=== PATIENT | female | born 1955 | race African-American/Black ===

== ENCOUNTER → 2018-07-21 | Outpatient (CLI) | payer MEDICARE ==
[~2018-07-21] MED LIST: DIATRIZOATE MEGL/DIATRIZOA SOD 30 ML BTL PO ONE; IOPAMIDOL 370 MG/ML 200 ML INFUS..BTL INJ ONE
[2018-07-21 13:33] LABS: BLOOD UREA NITROGEN 9 mg/dL (7-26); BUN/CREATININE RATIO 15 (6-25); EST GLOMERULAR FILTRATION RATE > 60 ML/MIN (60-)
--- NOTE | 2018-07-21 15:23 | Diagnostic Imaging Report ---
EXAM: CT Abdomen and Pelvis WITH contrast INDICATION: ^[id number] ^[id number] ^UNSPEC'D INTESTINAL OBSTRUCTION COMPARISON: None. TECHNIQUE: Abdomen and pelvis were scanned utilizing a multidetector helical scanner from the lung base to the pubic symphysis after administration of IV contrast. Coronal and sagittal reformations were obtained. Dose modulation, iterative reconstruction, and/or weight based adjustment of the mA/kV was utilized to reduce the radiation dose to as low as reasonably achievable. Routine protocol was performed. Scan was performed when during portal venous phase. IV CONTRAST: 100 mL of Isovue-370 ORAL CONTRAST: Gastroview COMPLICATIONS: None RADIATION DOSE: Total DLP: 379.9 mGy*cm Estimated effective dose: (DLP x 0.015 x size factor) mSv CTDIvol has been reviewed. It is below the limits set by the Radiation Protocol Committee (RPC). FINDINGS: LINES and TUBES: Left lower quadrant spine stimulator device with tip terminating in posterior spinal canal at the level of T11-T12. LOWER THORAX: Unremarkable HEPATOBILIARY: No focal hepatic lesions. Predominantly central pneumobilia. There is mild biliary dilatation. Distended common bile duct measuring up to 1.1 cm with air-fluid level. GALLBLADDER: Surgically absent. Metallic densities in the gallbladder fossa. SPLEEN: No splenomegaly. PANCREAS: No focal masses or ductal dilatation. ADRENALS: No adrenal nodules KIDNEYS/URETERS: Kidneys enhance symmetrically. No hydronephrosis. No renal mass. Tiny left inferior pole hypodensity is too small to characterize. No stones. GI TRACT: Evaluation of bowel loops are limited due to paucity of intra-abdominal fat. Mild colonic wall thickening. Evidence of gastric bypass surgery. Mild air and fluid distention of the bypassed portion of stomach and duodenum. Overall, the bowel gas pattern is nonobstructive. Oral contrast reaches proximal colon. PELVIC ORGANS/BLADDER: Hysterectomy. Bladder is unremarkable. Pelvic phleboliths. LYMPH NODES: No lymphadenopathy. VESSELS: Unremarkable. PERITONEUM / RETROPERITONEUM: No free air. Trace pelvic ascites. BONES: Lumbar spine scoliosis with degenerative changes. Grade 1 retrolisthesis of L5 in relation to L4. SOFT TISSUES: Metallic fragments in gallbladder fossa and anterior lower left abdomen (series 2, image 43). IMPRESSION: 1. Mild air and fluid distention of the bypassed portion of stomach and duodenum, likely due to stenosis at distal Y-anastomosis. The dilatation of common bile duct with air and fluid, could also be related to the same reason as well as some reservoir effect. 2. Colonic wall thickening, could represent colitis in the appropriate clinical setting. Signed by: Dr. Aaron Mg MD on 07/21/2018 3:20 PM
== END ==
LOC: CT 11:08
PROVIDERS: ATTEND Internal Medicine Gastroenterology
DX: K56.609 Unspecified intestinal obstruction, unspecified as to partial versus complete obstruction (principal)
CPT/HCPCS: 36415; 74177; 82565; 84520; Q9967

== ENCOUNTER → 2018-09-13 | Day surgery (SDC) | payer MEDICARE ==
[~2018-09-13] MED LIST changes: +AMITRIPTYLINE100 MG PO; -DIATRIZOATE MEGL/DIATRIZOA SOD 30 ML BTL PO ONE; +FENTANYL CITRATE/PF 100MCG/2 ML INJ ONE; +FERROUS SULFAT325 MG PO; +HYOSCYAMINE SULFATE 0.5 MG/ML INJ ONE; -IOPAMIDOL 370 MG/ML 200 ML INFUS..BTL INJ ONE; +MIDAZOLAM HCL 2 MG/2 ML VIAL ONE; +PANTOPRAZOLE SO40 MG PO; +PROPOFOL IV EMULSION 10 MG/ML 50 ML VIAL ONE; +TYLENOL WITH C1 EAC1 PO; +ULTRAM 50MG50 MG PO
--- OUTSIDE RECORDS SUMMARY | 2018-09-13 10:22 | XMS REPORT | Clinical Summary ---
Author Author [facility] Organization [facility] Address Unknown Phone Unavailable Care Team Providers [employer] Name Role Phone Jeremias Lombardi MD PCP Allergies Comments Active Allergy Reactions Severity Noted Date Penicillins Rash Low 04/09/2017 Medications End Date Status Medication Sig Dispensed Refills Start Date Active acetaminophen-codeine Take 1 tablet 0 (TYLENOL WITH CODEINE #4) by mouth 300-60 mg per tablet every 6 (six) hours as needed for moderate pain. Active amitriptyline (ELAVIL) Take 100 mg 0 100 MG tablet by mouth nightly. Active ferrous sulfate 325 (65 Take 325 mg 0 FE) MG tablet by mouth daily with breakfast. Active linaclotide (LINZESS) 145 Take 145 mcg 0 mcg capsule by mouth daily as needed. Active cyanocobalamin 1000 MCG Take 1,000 0 tablet mcg by mouth daily. Active cholecalciferol, vitamin Take 5,000 0 D3, (VITAMIN D3) 5,000 Units by unit tablet mouth daily. Active atorvastatin (LIPITOR) 80 Take 80 mg by 0 MG tablet mouth nightly. Active pantoprazole (PROTONIX) Take 40 mg by 0 40 MG EC tablet mouth daily. Active coenzyme Q10 10 mg Take 10 mg by 0 capsule mouth 2 (two) times a day. Active aspirin (ECOTRIN) 81 MG Take 81 mg by 0 enteric coated tablet mouth daily. Active promethazine (PHENERGAN) Take 1 tablet 30 tablet 1 12.5 MG (12.5 mg 8 tabletIndications: Nausea total) by and vomiting, mouth every 6 intractability of (six) hours vomiting not specified, as needed for unspecified vomiting type nausea or vomiting. Active furosemide (LASIX) 20 mg Take 20 mg by 0 tablet mouth daily. 01/20/2018 Discontinued diazePAM (VALIUM) 5 MG Take 5 mg by 0 tablet mouth 2 (two) times a day as needed for anxiety or muscle spasms. 04/26/2018 Discontinued metoprolol tartrate Take 25 mg by 0 (LOPRESSOR) 25 mg tablet mouth daily. 01/20/2018 Discontinued traMADol (ULTRAM) 50 mg Take 50 mg by 0 tablet mouth every 6 (six) hours as needed for moderate pain. 01/20/2018 Discontinued promethazine (PHENERGAN) Take 25 mg by 0 25 MG tablet mouth every 6 (six) hours as needed for nausea or vomiting. 01/20/2018 Discontinued keTOROlac (TORadol) 10 mg Take 10 mg by 0 tablet mouth every 6 (six) hours as needed for moderate pain. 04/26/2018 Discontinued amLODIPine (NORVASC) 10 Take 10 mg by 0 mg tablet mouth daily. 04/27/2018 Discontinued promethazine (PHENERGAN) Take 12.5 mg 0 12.5 MG tablet by mouth every 6 (six) hours as needed for nausea or vomiting. 02/22/2018 acetaminophen (TYLENOL) Take 2 240 tablet 0 500 MG tablet tablets 8 (1,000 mg total) by mouth every 6 (six) hours for 30 days. 01/27/2018 nitrofurantoin, Take 1 8 capsule 0 macrocrystal-monohydrate, capsule (100 8 (MACROBID) 100 MG capsule mg total) by mouth every 12 (twelve) hours for 4 days. 01/30/2018 traMADol (ULTRAM) 50 mg Take 1 tablet 35 tablet 0 tablet (50 mg total) 8 by mouth every 6 (six) hours as needed for moderate pain for up to 7 days. 01/30/2018 promethazine (PHENERGAN) Take 1 tablet 30 tablet 0 12.5 MG tablet (12.5 mg 8 total) by mouth every 6 (six) hours as needed for nausea or vomiting for up to 7 days. 04/26/2018 Discontinued baclofen (LIORESAL) 10 MG baclofen 10 0 tablet mg tablet 03/31/2018 promethazine (PHENERGAN) Take 1 tablet 30 tablet 0 25 MG tabletIndications: (25 mg total) 8 Nausea by mouth every 6 (six) hours as needed for nausea or vomiting for up to 30 days. 05/31/2018 Discontinued TPN FOR DISCHARGE See most 1 Package 0 recent TPN 8 order. 05/31/2018 Discontinued B complex-vitamin C-folic Take 1 tablet 30 tablet 0 acid (FOLBEE PLUS 5 MG) 5 by mouth 8 mg tablet per tablet daily for 30 days. 05/31/2018 Discontinued megestrol (MEGACE) 400 Take 10 mL 300 mL 0 mg/10 mL (10 mL) (400 mg 8 suspension total) by mouth daily for 30 days. 05/31/2018 Discontinued metoclopramide (REGLAN) 5 Take 5 mL (5 600 mL 0 mg/5 mL solution mg total) by 8 mouth 4 (four) times a day before meals and nightly for 30 days. 05/31/2018 Discontinued multivitamin (THERAGRAN) Take 1 tablet 30 tablet 0 tablet by mouth 8 daily for 30 days. 05/31/2018 Discontinued pancrelipase, Take 1 90 capsule 0 vcdnxq-knbppbtw-mmblusd, capsule by 8 (CREON) 24,000-76,000 mouth 3 -120,000 unit (three) times capsule,delayed a day with release(DR/EC) capsule meals for 30 days. 05/31/2018 Discontinued thiamine mononitrate, vit Take 1 tablet 30 tablet 0 B1, (B-1) 100 mg tablet (100 mg 8 total) by mouth daily for 30 days. 06/30/2018 multivitamin (THERAGRAN) Take 1 tablet 30 tablet 0 tablet by mouth 8 daily for 30 days. 06/30/2018 pancrelipase, Take 1 90 capsule 0 yxodak-chbnvcut-gncdlwo, capsule by 8 (CREON) 24,000-76,000 mouth 3 -120,000 unit (three) times capsule,delayed a day with release(DR/EC) capsule meals for 30 days. 06/12/2018 vancomycin 1,000 mg in Infuse 1,000 1 each 0 sodium chloride 0.9% 250 mg into a 8 mL IVPB venous catheter every 12 (twelve) hours for 12 days. 06/30/2018 B complex-vitamin C-folic Take 1 tablet 30 tablet 0 acid (FOLBEE PLUS 5 MG) 5 by mouth 8 mg tablet per tablet daily for 30 days. Active Problems Problem Noted Date Fever 05/26/2018 Anemia 05/25/2018 Malnutrition 04/21/2018 Severe protein-calorie malnutrition 04/20/2018 Overview: Added automatically from request for surgery [id number] Small bowel obstruction 01/20/2018 Chest pain 06/20/2017 Encounters Care Team Description Date Type Specialty Isa Nieto MD 06/01/2018 Telephone Infectious Diseases Lyn Moser MD Bacteremia (Primary Dx); Anemia 05/25/2018 Hospital General Internal Medicine - Encounter 05/31/2018 Janet Quiñonez MA 05/25/2018 Telephone General Surgery Janet Quiñonez MA 05/23/2018 Telephone General Surgery Silvestre Arriaga MD 05/23/2018 Orders Only General Surgery Silvestre Arriaga MD 05/16/2018 Orders Only General Surgery Lias Roberts MD Edema, unspecified type 05/12/2018 Hospital Procedural Cardiology Encounter Lisa Roberts MD Edema, unspecified type (Primary Dx) 05/12/2018 Transcribe Procedural Cardiology Orders Parish Martinez MD 05/03/2018 Telephone General Surgery Carina Sheldon RN Nausea and vomiting, intractability of vomiting not specified, unspecified vomiting type (Primary Dx) 04/27/2018 Orders Only General Surgery Jalen Gatica MD ESOPHAGOGASTRODUODENOSCOPY (EGD) 04/25/2018 Surgery Gastroenterology Dhother, Jayesh Chowdhury MD 04/25/2018 Anesthesia Gastroenterology Event Zohreh Langford MD Severe protein-calorie malnutrition (HCC) (Primary Dx); Malnutrition compromising bodily function (HCC) 04/21/2018 Hospital General Surgery - Encounter 04/26/2018 Zohreh Langford MD 04/20/2018 Orders Only General Internal Medicine Parish Martinez MD Generalized abdominal pain (Primary Dx) 04/19/2018 Office Visit General Surgery Lisa Roberts MD Deferred diagnosis on axis I (Primary Dx) 03/27/2018 Transcribe Access Orders Parish Martinez MD S/P small bowel resection (Primary Dx) 03/15/2018 Office Visit General Surgery Parish Martinez MD Nausea (Primary Dx); Wound infection 03/01/2018 Office Visit General Surgery Parish Martinez MD Small bowel obstruction (Primary Dx) 02/13/2018 Office Visit General Surgery Parish Martinez MD Complete intestinal obstruction, unspecified cause (Primary Dx) 02/06/2018 Office Visit General Surgery Priyanka Sorensen PA 02/02/2018 Telephone General Surgery Ivy White MD 01/20/2018 Anesthesia General Surgery Event Parish Martinez MD DIAGNOSTIC LAPAROSCOPY CONVERTED TO OPEN, SMALL BOWEL RESECTION 01/20/2018 Surgery General Surgery Brendan Clark, Rod Macedo, Abhishek Mosher MD Small bowel obstruction (Primary Dx) 01/20/2018 Hospital General Surgery - Encounter 01/23/2018 after 09/12/2017 Immunizations Name Dates Previously Given Next Due FLUCELVAX QUAD PF (0.5mL 04/26/2018 syringe) Social History Date Tobacco Use Types Packs/Day Years Used Never Smoker Smokeless Tobacco: Never Used Alcohol Use Drinks/Week oz/Week Comments No Sex Assigned at Date Recorded Not on file Industry Job Start Date Occupation Not on file Not on file Not on file Travel End Travel History Travel Start No recent travel history available. Last Filed Vital Signs Time Taken Vital Sign Reading 05/31/2018 7:15 AM [employer]UC[employer] SAL[employer] Blood Pressure 112/58 05/31/2018 7:15 AM [employer]UC[employer] E[employer]MENT SALES ENG[employer]ER Pulse 88 05/31/2018 7:15 AM [employer]UC[employer] EQU[employer]MENT SALES ENG[employer]ER Temperature 37.4 C (99.3 F) 05/31/2018 7:15 AM [employer]UC[employer] EQU[employer]MENT SALES ENG[employer]ER Respiratory Rate 19 05/31/2018 7:15 AM [employer]UCLE[employer] EQU[employer]MENT SALES ENGINEER Oxygen Saturation 100% - Inhaled Oxygen - Concentration 05/30/2018 4:00 PM [employer]UC[employer] EQUIPMENT SALES ENG[employer]ER Weight 59.5 kg (131 lb 1.6 oz) 05/25/2018 2:38 PM [employer]UC[employer] SALES [employer] Height 162.6 cm (5' 4") 05/30/2018 4:00 PM [employer]UCLE[employer] EQU[employer]MENT SALES ENG[employer]ER Body Mass Index 22.5 Plan of Treatment Health Maintenance Due Date Last Done Comments CERVICAL CANCER SCREENING 1976 BREAST CANCER SCREENING 2005 SHINGLES VACCINES (#1) 2005 COLON CANCER SCREENING 04/23/2028 04/23/2018 INFLUENZA VACCINE Completed 04/26/2018 Implants Device Identifier Shelf Expiration Date Model / Serial / Lot Implanted Type Area Manufactur er Stimulator Stimulator Stimulator Stimulator Stimulator Stimulator Procedures Comments Procedure Name Priority Date/Time Associated Diagnosis XR PICC CHEST PORTABLE Routine 05/31/2018 Anemia 11:22 AM [employer]UC[employer] SAL[employer]ER HC CATH DUAL LUMEN PICC Routine 05/31/2018 11:04 AM [employer] SAL[employer]ER HC US GUIDED VASCULAR Routine 05/31/2018 ACCESS 11:04 AM [employer]UC[employer] SAL[employer] ENG[employer]ER HC CVL PICC INSERT 5 YRS Routine 05/31/2018 OR > W/O IMG GUID 11:04 AM [employer] SAL[employer]ER BLOOD CULTURE, AEROBIC & Routine 05/30/2018 ANAEROBIC 2:59 PM [employer] SAL[employer] ENG[employer]ER ESTIMATED GFR Routine 05/30/2018 6:17 AM [employer] SAL[employer] ENG[employer]ER PHOSPHORUS LEVEL Routine 05/30/2018 6:17 AM [employer] SAL[employer] ENG[employer]ER MAGNESIUM LEVEL Routine 05/30/2018 6:17 AM [employer] SAL[employer]ER COMPREHENSIVE METABOLIC Routine 05/30/2018 PANEL 6:17 AM [employer]UC[employer] SAL[employer] ENG[employer]ER ESTIMATED GFR Routine 05/29/2018 4:00 AM NUC[employer] E[employer]MENT SALES ENGINEER PHOSPHORUS LEVEL Routine 05/29/2018 4:00 AM [employer]UC[employer]MENT SALES ENG[employer]ER MAGNESIUM LEVEL Routine 05/29/2018 4:00 AM [employer] SAL[employer] BASIC METABOLIC PANEL Routine 05/29/2018 4:00 AM [employer] SALES ENG[employer]ER VANCOMYCIN LEVEL, TROUGH Routine 2018 8:30 AM NUC[employer] E[employer]MENT SALES ENGINEER ESTIMATED GFR Routine 2018 4:00 AM NUC[employer]MENT SALES ENGINEER PHOSPHORUS LEVEL Routine 2018 4:00 AM NUC[employer]MENT SALES ENGINEER MAGNESIUM LEVEL Routine 2018 4:00 AM [employer]UC[employer] SAL[employer] ENGINEER BASIC METABOLIC PANEL Routine 2018 4:00 AM [employer]UC[employer] SAL[employer] ENG[employer]ER BLOOD CULTURE, AEROBIC & Routine 05/27/2018 ANAEROBIC 3:40 PM [employer]UC[employer]MENT SAL[employer] ENGINEER HEPATIC FUNCTION PANEL Routine 05/27/2018 3:30 PM NUC[employer] E[employer]MENT SALES ENG[employer]ER HC COMPLETE BLD COUNT Routine 05/27/2018 W/AUTO DIFF 4:15 AM NUCLE[employer] EQUIPMENT SALES ENGINEER ESTIMATED GFR Routine 05/27/2018 4:00 AM NUC[employer] EQU[employer]MENT SALES ENGINEER PHOSPHORUS LEVEL Routine 05/27/2018 4:00 AM NUC[employer] EQU[employer]MENT SALES ENGINEER MAGNESIUM LEVEL Routine 05/27/2018 4:00 AM [employer] SAL[employer] ENG[employer]ER BASIC METABOLIC PANEL Routine 05/27/2018 4:00 AM NUC[employer] EQUIPMENT SALES ENGINEER ECHOCARDIOGRAM 2D Routine 05/27/2018 COMPLETE W MMODE SPECTRAL 2:35 AM NUCLE[employer] EQUIPMENT SALES ENGINEER COLOR DOPPLER ([id number]) TRANSFUSE RED BLOOD CELLS Routine 05/26/2018 4:07 PM NUCLE[employer] EQUIPMENT SALES ENGINEER RESPIRATORY PATHOGEN Routine 05/26/2018 PANEL 10:48 AM NUCLE[employer] EQUIPMENT SALES ENGINEER XR CHEST 1 VW PORTABLE Routine 05/26/2018 7:54 AM NUC[employer] EQUIPMENT SALES ENGINEER HC COMPLETE BLD COUNT Routine 05/26/2018 W/AUTO DIFF 5:24 AM NUCLE[employer] EQUIPMENT SALES ENGINEER POC GLUCOSE Routine 05/25/2018 10:12 PM NUC[employer]MENT SALES ENG[employer]ER URINALYSIS SCREEN AND Routine 05/25/2018 MICROSCOPY, WITH REFLEX 5:42 PM NUC[employer] E[employer]IPMENT SALES ENGINEER TO CULTURE URINE CULTURE Routine 05/25/2018 5:40 PM NUCLE[employer] EQUIPMENT SALES ENGINEER BLOOD CULTURE, AEROBIC & Routine 05/25/2018 ANAEROBIC 5:38 PM NUC[employer]IPMENT SALES ENGINEER BLOOD CULTURE, AEROBIC & Routine 05/25/2018 ANAEROBIC 5:35 PM NUC[employer] E[employer]IPMENT SALES ENGINEER PREPARE RBC Timed 05/25/2018 4:00 PM NUC[employer] E[employer]MENT SALES ENGINEER PREPARE RBC Timed 05/25/2018 4:00 PM NUC[employer] E[employer]MENT SALES ENGINEER TYPE AND SCREEN Timed 05/25/2018 4:00 PM NUC[employer]MENT SALES ENG[employer]ER HC COMPLETE BLD COUNT STAT 05/25/2018 W/AUTO DIFF 4:00 PM NUC[employer]MENT SALES ENGINEER ESTIMATED GFR Routine 05/25/2018 2:53 PM NUC[employer] E[employer]MENT SALES ENGINEER BASIC METABOLIC PANEL Routine 05/25/2018 2:53 PM NUC[employer] E[employer]MENT SALES ENGINEER [id number] Routine 05/23/2018 [id number] Routine 05/16/2018 US DUPLEX VENOUS LOWER Routine 05/12/2018 Edema, unspecified type EXTREMITY BILATERAL 2:03 PM CDT POC GLUCOSE Routine 04/26/2018 9:04 AM CDT POC GLUCOSE Routine 04/26/2018 3:29 AM CDT POC GLUCOSE Routine 04/25/2018 11:28 PM CDT POC GLUCOSE Routine 04/25/2018 7:59 PM CDT POC GLUCOSE Routine 04/25/2018 4:56 PM CDT POC GLUCOSE Routine 04/25/2018 11:38 AM CDT ESOPHAGOGASTRODUODENOSCOP 04/25/2018 Severe protein-calorie Y (EGD) 7:00 AM CDT malnutrition (HCC) CBC WITH PLATELET AND Routine 04/25/2018 DIFFERENTIAL 5:30 AM CDT POC GLUCOSE Routine 04/25/2018 4:36 AM CDT ESTIMATED GFR Routine 04/25/2018 4:00 AM CDT PHOSPHORUS LEVEL Routine 04/25/2018 4:00 AM CDT MAGNESIUM LEVEL Routine 04/25/2018 4:00 AM CDT C-REACTIVE PROTEIN Routine 04/25/2018 4:00 AM CDT BASIC METABOLIC PANEL Routine 04/25/2018 4:00 AM CDT POC GLUCOSE Routine 04/24/2018 11:38 PM CDT POC GLUCOSE Routine 04/24/2018 8:57 PM CDT POC GLUCOSE Routine 04/24/2018 3:26 PM CDT PHOSPHORUS LEVEL Routine 04/24/2018 11:44 AM CDT ESTIMATED GFR Routine 04/24/2018 11:44 AM CDT MAGNESIUM LEVEL Routine 04/24/2018 11:44 AM CDT BASIC METABOLIC PANEL Routine 04/24/2018 11:44 AM CDT POC GLUCOSE Routine 04/24/2018 11:38 AM CDT POC GLUCOSE Routine 04/24/2018 7:28 AM CDT POC GLUCOSE Routine 04/24/2018 3:38 AM CDT POC GLUCOSE Routine 04/23/2018 11:18 PM CDT POC GLUCOSE Routine 04/23/2018 3:28 PM CDT TYPE AND SCREEN Timed 04/23/2018 11:55 AM CDT HEMOGLOBIN & HEMATOCRIT Timed 04/23/2018 11:55 AM CDT POC GLUCOSE Routine 04/23/2018 11:25 AM CDT OCCULT BLOOD, STOOL Routine 04/23/2018 9:30 AM CDT POC GLUCOSE Routine 04/23/2018 7:13 AM CDT HC COMPLETE BLD COUNT Routine 04/23/2018 W/AUTO DIFF 4:30 AM CDT ESTIMATED GFR Routine 04/23/2018 4:00 AM CDT PHOSPHORUS LEVEL Routine 04/23/2018 4:00 AM CDT MAGNESIUM LEVEL Routine 04/23/2018 4:00 AM CDT BASIC METABOLIC PANEL Routine 04/23/2018 4:00 AM CDT POC GLUCOSE Routine 04/23/2018 3:34 AM CDT POC GLUCOSE Routine 04/22/2018 11:01 PM CDT ESTIMATED GFR Timed 04/22/2018 8:00 PM CDT PHOSPHORUS LEVEL Timed 04/22/2018 8:00 PM CDT MAGNESIUM LEVEL Timed 04/22/2018 8:00 PM CDT BASIC METABOLIC PANEL Timed 04/22/2018 8:00 PM CDT POC GLUCOSE Routine 04/22/2018 3:19 PM CDT PHOSPHORUS LEVEL Timed 04/22/2018 11:48 AM CDT MAGNESIUM LEVEL Timed 04/22/2018 11:48 AM CDT ESTIMATED GFR Timed 04/22/2018 11:48 AM CDT BASIC METABOLIC PANEL Timed 04/22/2018 11:48 AM CDT POC GLUCOSE Routine 04/22/2018 11:05 AM CDT POC GLUCOSE Routine 04/22/2018 7:06 AM CDT SEDIMENTATION RATE Routine 04/22/2018 4:40 AM CDT ESTIMATED GFR Routine 04/22/2018 4:00 AM CDT TRIGLYCERIDES Routine 04/22/2018 4:00 AM CDT PREALBUMIN LEVEL Routine 04/22/2018 4:00 AM CDT FERRITIN LEVEL Routine 04/22/2018 4:00 AM CDT BASIC METABOLIC PANEL Routine 04/22/2018 4:00 AM CDT PHOSPHORUS LEVEL Routine 04/22/2018 4:00 AM CDT MAGNESIUM LEVEL Routine 04/22/2018 4:00 AM CDT VITAMIN D 25 HYDROXY Routine 04/22/2018 LEVEL 4:00 AM CDT C-REACTIVE PROTEIN Routine 04/22/2018 4:00 AM CDT HOMOCYSTINE, PLASMA Routine 04/22/2018 4:00 AM CDT THYROID STIMULATING Routine 04/22/2018 HORMONE 4:00 AM CDT VITAMIN B1 LEVEL, WHOLE Routine 04/22/2018 BLOOD 4:00 AM CDT VITAMIN B12 LEVEL Routine 04/22/2018 4:00 AM CDT POC GLUCOSE Routine 04/22/2018 3:[address] ABDOMEN PELVIS W Routine 04/21/2018 CONTRAST 6:52 PM CDT XR PICC CHEST PORTABLE Routine 04/21/2018 Malnutrition compromising 5:45 PM CDT bodily function (HCC) HC CATH DUAL LUMEN PICC Routine 04/21/2018 5:31 PM CDT HC US GUIDED VASCULAR Routine 04/21/2018 ACCESS 5:31 PM CDT HC CVL PICC INSERT 5 YRS Routine 04/21/2018 OR > W/O IMG GUID 5:31 PM CDT XR CHEST 2 VW Routine 04/21/2018 5:01 PM CDT ECG 12-LEAD STAT 04/21/2018 3:43 PM CDT PROTHROMBIN TIME WITH INR STAT 04/21/2018 3:22 PM CDT D-DIMER STAT 04/21/2018 3:22 PM CDT TROPONIN STAT 04/21/2018 2:25 PM CDT SMEAR REVIEW STAT 04/21/2018 2:25 PM CDT ESTIMATED GFR STAT 04/21/2018 2:25 PM CDT PREALBUMIN LEVEL STAT 04/21/2018 2:25 PM CDT PHOSPHORUS LEVEL STAT 04/21/2018 2:25 PM CDT MAGNESIUM LEVEL STAT 04/21/2018 2:25 PM CDT LIPASE LEVEL STAT 04/21/2018 2:25 PM CDT COMPREHENSIVE METABOLIC STAT 04/21/2018 PANEL 2:25 PM CDT HC COMPLETE BLD COUNT STAT 04/21/2018 W/AUTO DIFF 2:25 PM CDT AMYLASE LEVEL STAT 04/21/2018 2:25 PM CDT HC COMPLETE BLD COUNT Routine 01/23/2018 W/AUTO DIFF 4:10 AM CDT ZZESTIMATED GFR Routine 01/23/2018 4:00 AM CDT PHOSPHORUS LEVEL Routine 01/23/2018 4:00 AM CDT MAGNESIUM LEVEL Routine 01/23/2018 4:00 AM CDT BASIC METABOLIC PANEL Routine 01/23/2018 4:00 AM CDT HC COMPLETE BLD COUNT Routine 01/22/2018 W/AUTO DIFF 4:15 AM CDT ZZESTIMATED GFR Routine 01/22/2018 4:00 AM CDT PHOSPHORUS LEVEL Routine 01/22/2018 4:00 AM CDT MAGNESIUM LEVEL Routine 01/22/2018 4:00 AM CDT BASIC METABOLIC PANEL Routine 01/22/2018 4:00 AM CDT CBC WITH PLATELET AND Routine 01/21/2018 DIFFERENTIAL 4:40 AM CDT ZZESTIMATED GFR Routine 01/21/2018 4:00 AM CDT PHOSPHORUS LEVEL Routine 01/21/2018 4:00 AM CDT MAGNESIUM LEVEL Routine 01/21/2018 4:00 AM CDT BASIC METABOLIC PANEL Routine 01/21/2018 4:00 AM CDT SMEAR REVIEW Routine 01/20/2018 1:48 PM CDT HC COMPLETE BLD COUNT Routine 01/20/2018 W/AUTO DIFF 1:48 PM CDT SURGICAL PATHOLOGY Routine 01/20/2018 REQUEST 1:02 PM CDT CBC WITH PLATELET AND Routine 01/20/2018 DIFFERENTIAL 1:00 PM CDT ZZESTIMATED GFR Routine 01/20/2018 12:15 PM CDT BASIC METABOLIC PANEL Routine 01/20/2018 12:15 PM CDT RI AN ELECTIVE Routine 01/20/2018 ENDOTRACHEAL AIRWAY 10:27 AM CDT Procedure Note - Evelyn Farnsworth CRNA - 01/20/2018 10:27 AM CDT Airway Date/Time: 01/20/2018 9:50 AM Performed by: EVELYN FARNSWORTH Authorized by: IVY WHITE Location: OR Urgency: Elective Difficult Airway: No Resident/C RNA/AA: EVELYN FARNSWORTH Performed by: resident/C RNA/AA Preoxygena karen with 100% O2: Yes C-spine Precaution s Maintained Throughout : Yes Mask Ventilatio n: Not attempted Final Airway Type: Endotrache al airway Final Endotrache al Airway: ETT Cuffed: Yes Technique Used: Direct laryngosco py Insertion Site: Oral Blade Type: Pedroza Laryngosco pe Blade/Vide olaryngosc ope Blade Size: 2 ETT Size (mm): 7.0 Cuff at minimum occlusion pressure: Yes Measured from: Gums ETT to Gums (cm): 21 Placement Verified by: CO2 detection, direct visualizat ion and equal breath sounds Laryngosco pic view: Grade I - full view of glottis Rapid Sequence Induction (RSI): Yes Number of Attempts at Approach: 1 ECG 12-LEAD STAT 01/20/2018 9:31 AM CDT LAPAROSCOPY, DIAGNOSTIC 01/20/2018 DIAGNOSTIC LAPAROSCOPY 8:[address] ABDOMEN PELVIS W STAT 01/20/2018 CONTRAST 6:00 AM CDT URINALYSIS SCREEN AND STAT 01/20/2018 MICROSCOPY, WITH REFLEX 5:00 AM CDT TO CULTURE GRAM STAIN STAT 01/20/2018 5:00 AM CDT URINE CULTURE STAT 01/20/2018 5:00 AM CDT ZZESTIMATED GFR STAT 01/20/2018 2:50 AM CDT LACTIC ACID LEVEL, SEPSIS STAT 01/20/2018 - NOW AND REPEAT 2X EVERY 2:50 AM CDT 3 HOURS LIPASE LEVEL STAT 01/20/2018 2:50 AM CDT COMPREHENSIVE METABOLIC STAT 01/20/2018 PANEL 2:50 AM CDT HC COMPLETE BLD COUNT STAT 01/20/2018 W/AUTO DIFF 2:50 AM CDT after 09/12/2017 Results * XR Picc Chest Portable (05/31/2018 11:22 AM NUCLE[employer] EQUIPMENT SALES ENGINEER) Only the most recent of 2 results within the time period is included. Narrative Performed At EXAMINATION:XR PICC CHEST PORTABLE [facility] CLINICAL HISTORY:PICC LINE INSERTION XR PICC CHEST PORTABLEimages are submitted COMPARISON:05/26/2018 FINDINGS: The cardiac silhouette is normal in size. The pulmonary vasculature is within normal limits. The lung zones have no focal area of consolidation. There is no pleural effusion or pneumothorax. The PICC line has the tip in the superior vena cava. IMPRESSION: 1. There is no acute cardiopulmonary disease. Procedure Note Hm Interface, Radiology Results Incoming - 05/31/2018 11:26 AM NUCLEAR EQUIPMENT SALES ENGINEER EXAMINATION: XR PICC CHEST PORTABLE CLINICAL HISTORY: PICC LINE INSERTION XR PICC CHEST PORTABLE images are submitted COMPARISON: 05/26/2018 FINDINGS: The cardiac silhouette is normal in size. The pulmonary vasculature is within normal limits. The lung zones have no focal area of consolidation. There is no pleural effusion or pneumothorax. The PICC line has the tip in the superior vena cava. IMPRESSION: 1. There is no acute cardiopulmonary disease. Performing Organization Address City/State/Zipcode Phone Number [id number] [phone] [place] [address] * PICC insertion (05/31/2018 11:04 AM NUCLEAR EQUIPMENT SALES ENGINEER) Narrative Performed At Brendan See RN 05/31/2018 11:07 AM PICC insertion Date/Time: 05/31/2018 11:05 AM Performed by: Brendan See RN Authorized by: Lyn Moser MD Consent: Consent obtained:Verbal Consent given by:Patient Risks discussed: arterial puncture, incorrect placement, nerve damage, bleeding, infection, superficial thrombus and deep vein thrombus Alternatives discussed:Delayed treatment [place] protocol: Procedure explained and questions answered to patient or proxy's satisfaction: yes Relevant documents present and verified: yes Test results available and properly labeled: yes Imaging studies available: yes Required blood products, implants, devices, and special equipment available: yes Site/side marked: yes Immediately prior to procedure, a time out was called: yes Patient identity confirmed:Verbally with patient, arm band, provided demographic data and hospital-assigned identification number Pre-procedure details: Hand hygiene: Hand hygiene performed prior to insertion Sterile barrier technique: All elements of maximal sterile technique followed Skin preparation:ChloraPrep Skin preparation agent: Skin preparation agent completely dried prior to procedure Anesthesia (see MAR for exact dosages): Anesthesia method:Local infiltration Local anesthetic:Lidocaine 1% w/o epi Route of administration:Subcutaneous PICC Line Placement Details (Will create an LDA): Patient position:Flat Vessel Size (mm):3 Indication:Known long-term IV therapy Location:Right brachial Device Type:Non-valved Catheter size:5 Fr PICC Characteristics: Catheter Brand:AngiodySynacorflo External Catheter Length (cm):0 Internal Catheter Length (cm):38 Total Catheter Length (cm):38 Catheter Lot Number:[id number] Catheter Expiration Date:03/17/2020 Procedure Details: Landmarks identified: yes Ultrasound guidance: yes Sterile ultrasound techniques: Sterile gel and sterile probe covers were used Number of attempts:1 Number of PICC kits used during procedure:1 Purpose of procedure:PICC Placement Successful PICC Placement: Yes Patency/Placement:Flushes without difficulty, flushed with 10 mL normal saline, positive blood return, x-ray placement verified and injection cap placed PICC placed utlizing ultrasound-guided Modified Seldinger Technique: Yes Dressing/Securement:Catheter securement device and antimicrobial dressing applied (CHG Tegaderm) Blood Loss Amount:Less than 20 mL Post-Procedure Details: Post-procedure:Dressing applied Tip placement confirmed by chest x-ray: Yes Patient tolerance of procedure:Tolerated well, no immediate complications * Blood culture, aerobic & anaerobic (05/30/2018 2:59 PM NUCLE[employer] EQUIPMENT SALES ENGINEER) Only the most recent of 4 results within the time period is included. Blood culture isolate No growth after 5 days of [facility] incubation. [facility] Comment: Specimen Information Specimen Source: Blood Specimen Site: Forearm, left Specimen Blood - Forearm, left Performing Organization Address City/[facility] [place] Phone Number [facility] [place] [address] PATHOLOGY AND [facility] MEDICINE [address] * Estimated GFR (05/30/2018 6:17 AM NUCLEAR EQUIPMENT SALES ENGINEER) Only the most recent of 12 results within the time period is included. Estimated GFR >=90 mL/min/1.73 m2 [facility] Comment: HOSPITAL CatergoryUnitsInte rpretation G1 >=90 Normal or high G2 60-89Mildly decreased F1s49-63 Mildly to moderately decreased A6x22-18 Moderately to severely decreased G4 15-29Severely decreased G5 <15Kidney failure The eGFR was calculated using the Chronic Kidney Disease Epidemiology Collaboration (CKD-EPI) equation. Interpretation is based on recommendations of the National Kidney Foundation-Kidney Disease Outcomes Quality Initiative (NKF-KDOQI) published in 2014. Specimen Plasma specimen Performing Organization Address City/[facility] Phone Number [facility] [address] PATHOLOGY AND GENOMIC MEDICINE [address] * Phosphorus level (05/30/2018 6:17 AM NUCLEAR EQUIPMENT SALES ENGINEER) Only the most recent of 14 results within the time period is included. Phosphorus 2.7 2.4 - 4.5 mg/dL [facility] Specimen Plasma specimen Performing Organization Address City/[facility]/Zipcode Phone Number [facility] DEPARTMENT OF [address] [place] [address] PATHOLOGY AND GENOMIC MEDICINE [address] * Magnesium level (05/30/2018 6:17 AM NUCLEAR EQUIPMENT SALES ENGINEER) Only the most recent of 14 results within the time period is included. Magnesium 1.6 1.6 - 2.4 mg/dL [facility] Specimen Plasma specimen Performing Organization Address City/[facility]ode Phone Number [facility] DEPARTMENT OF [address] [place] [address] PATHOLOGY AND GENOMIC MEDICINE [address] * Comprehensive metabolic panel (05/30/2018 6:17 AM NUCLEAR EQUIPMENT SALES ENGINEER) Only the most recent of 3 results within the time period is included. Sodium 141 135 - 148 mEq/L [facility] Potassium 3.8 3.5 - 5.0 mEq/L [facility] Chloride 110 98 - 112 mEq/L [facility] CO2 20 (L) 24 - 31 mEq/L [facility] Anion gap 11@ANIO 7 - 15 mEq/L [facility] BUN 14 8 - 23 mg/dL [facility] Creatinine 0.64 0.50 - 0.90 mg/dL [facility] Glucose 107 (H) 65 - 99 mg/dL [facility] Calcium 8.8 8.8 - 10.2 mg/dL [facility] Protein 6.3 6.3 - 8.3 g/dL [facility] Comment: HOSPITAL 4.6-7.0 g/dL 1 week 4.4-7.6 g/dL 7 months-1year 5.1-7.3 g/dL 1-2 years5.6-7 .5 g/dL >3 years6.0-8 .0 g/dL 18-150 6.3-8.3 g/dL Albumin 2.1 (L) 3.5 - 5.0 g/dL [facility] A/G ratio 0.5 (L) 0.7 - 3.8 [facility] Alkaline phosphatase 53 35 - 104 U/L [facility] AST 53 (H) 10 - 35 U/L [facility] ALT 29 5 - 50 U/L [facility] Total bilirubin <0.2 0.0 - 1.2 mg/dL [facility] Specimen Plasma specimen Performing Organization Address City/[facility] Phone Number [facility] [place] [address] PATHOLOGY AND GENOMIC MEDICINE [address] * Basic metabolic panel (05/29/2018 4:00 AM NUCLEAR EQUIPMENT SALES ENGINEER) Only the most recent of 14 results within the time period is included. Sodium 140 135 - 148 mEq/L [facility] Potassium 3.6 3.5 - 5.0 mEq/L [facility] Chloride 110 98 - 112 mEq/L [facility] CO2 19 (L) 24 - 31 mEq/L [facility] Anion gap 11@ANIO 7 - 15 mEq/L [facility] BUN 19 8 - 23 mg/dL [facility] Creatinine 0.66 0.50 - 0.90 mg/dL [facility] Glucose 85 65 - 99 mg/dL [facility] Calcium 8.8 8.8 - 10.2 mg/dL [facility] Specimen Plasma specimen Performing Organization Address [facility] Phone Number [facility] [address] PATHOLOGY AND GENOMIC MEDICINE [address] * Vancomycin level, trough (2018 8:30 AM NUCLEAR EQUIPMENT SALES ENGINEER) Vancomycin, trough 17.6 10.0 - 20.0 ug/mL [facility] Comment: HOSPITAL Therapeutic Ranges: Peak 30.0 - 40.0 ug/mL Jgmujh96.0 - 20.0 ug/mL Specimen Serum Performing Organization Address City/[facility] Centercode Phone Number [facility] [place] [address] PATHOLOGY AND GENOMIC MEDICINE [address] * Hepatic function panel (05/27/2018 3:30 PM NUCLEAR EQUIPMENT SALES ENGINEER) Albumin 2.1 (L) 3.5 - 5.0 g/dL [facility] DEPARTMENT OF PATHOLOGY AND GENOMIC MEDICINE Total bilirubin <0.2 0.0 - 1.2 mg/dL [facility] DEPARTMENT OF PATHOLOGY AND GENOMIC MEDICINE Bilirubin direct <0.2 0.0 - 0.3 mg/dL [facility] DEPARTMENT OF PATHOLOGY AND GENOMIC MEDICINE Alkaline phosphatase 54 35 - 104 U/L [facility] DEPARTMENT OF PATHOLOGY AND GENOMIC MEDICINE Protein 6.4 6.3 - 8.3 g/dL [facility] DEPARTMENT OF Comment: PATHOLOGY AND GENOMIC MEDICINE 4.6-7.0 g/dL 1 week 4.4-7.6 g/dL 7 months-1year 5.1-7.3 g/dL 1-2 years5.6-7 .5 g/dL >3 years6.0-8 .0 g/dL 18-150 6.3-8.3 g/dL ALT 22 5 - 50 U/L [facility] DEPARTMENT OF PATHOLOGY AND GENOMIC MEDICINE AST 43 (H) 10 - 35 U/L [facility] DEPARTMENT OF PATHOLOGY AND GENOMIC MEDICINE Specimen Plasma specimen Performing Organization Address City/State/Zipcode Phone Number [facility] DEPARTMENT OF [address] [place] [address] PATHOLOGY AND GENOMIC MEDICINE * CBC with platelet and differential (05/27/2018 4:15 AM NUCLEAR EQUIPMENT SALES ENGINEER) Only the most recent of 12 results within the time period is included. WBC 8.29 4.50 - 11.00 k/uL [facility] DEPARTMENT OF PATHOLOGY AND GENOMIC MEDICINE RBC 3.63 (L) 4.20 - 5.50 m/uL [facility] DEPARTMENT OF PATHOLOGY AND GENOMIC MEDICINE HGB 8.7 (L) 12.0 - 16.0 g/dL [facility] DEPARTMENT OF PATHOLOGY AND GENOMIC MEDICINE HCT 26.4 (L) 37.0 - 47.0 % [facility] DEPARTMENT OF PATHOLOGY AND GENOMIC MEDICINE MCV 72.7 (L) 82.0 - 100.0 fL [facility] DEPARTMENT OF PATHOLOGY AND GENOMIC MEDICINE MCH 24.0 (L) 27.0 - 34.0 pg [facility] DEPARTMENT OF PATHOLOGY AND GENOMIC MEDICINE MCHC 33.0 31.0 - 37.0 g/dL [facility] DEPARTMENT OF PATHOLOGY AND GENOMIC MEDICINE RDW - SD 45.9 37.0 - 55.0 fL [facility] DEPARTMENT OF PATHOLOGY AND GENOMIC MEDICINE MPV 10.2 8.8 - 13.2 fL [facility] DEPARTMENT OF PATHOLOGY AND GENOMIC MEDICINE Platelet count 335 150 - 400 k/uL [facility] DEPARTMENT OF PATHOLOGY AND GENOMIC MEDICINE Nucleated RBC 0.00 /100 WBC [facility] DEPARTMENT OF PATHOLOGY AND GENOMIC MEDICINE Neutrophils 59.9 39.0 - 69.0 % [facility] DEPARTMENT OF PATHOLOGY AND GENOMIC MEDICINE Lymphocytes 24.4 (L) 25.0 - 45.0 % [facility] DEPARTMENT OF PATHOLOGY AND GENOMIC MEDICINE Monocytes 14.1 (H) 0.0 - 10.0 % [facility] DEPARTMENT OF PATHOLOGY AND GENOMIC MEDICINE Eosinophils 1.2 0.0 - 5.0 % [facility] DEPARTMENT OF PATHOLOGY AND GENOMIC MEDICINE Basophils 0.2 0.0 - 1.0 % [facility] DEPARTMENT OF PATHOLOGY AND GENOMIC MEDICINE Immature granulocytes 0.2Comment: "Immature 0.0 - 1.0 % [facility] DEPARTMENT OF granulocytes" (promyelocytes, PATHOLOGY AND myelocytes, metamyelocytes) GENOMIC MEDICINE Specimen Blood Performing Organization Address City/State/Zipcode Phone Number [facility] DEPARTMENT OF [address] [place] [address] PATHOLOGY AND GENOMIC MEDICINE * Echocardiogram complete w contrast and 3D if needed (05/27/2018 2:35 AM NUCLEAR EQUIPMENT SALES ENGINEER) Narrative Performed At [facility] Echocardiography Report [address] [place] [address] Pat.Name:MARLON BUCIO.ID:[id number] .Date: 05/27/2018Refer.MD:LYN MOSER MD Exam Time: 2:02:00 PMStudy Type:Routine Echo Height:65inWeight:102lb BSA: 1.49 m2 DOBAge:1955,62Y Sex: FEMALEBP:119/56 HR:98 bpmSonogrphr: HERMAN Munoz Pat. Stat.:Inpatient Room:[address] Study Status:Final Echo Event ID:[id number] Order ID:[id number] Reason for Study:R/O vegetation Procedures:2D Echo, Colorflow Doppler, Strain Race:B SUMMARY: LV size is normal. LV EF is normal. LV GLS is -23.3%. Small circumferential pericardial effusion. No vegetation is seen. FINDINGS: LV: LV size is normal. LV EF is normal. LV GLS is -23.3%. Overallwall motion is normal. Estimated EF is 55-59%. RV: RV size is normal. RV systolic function is normal. LA: LA volume is moderately enlarged. RA: RA size is normal. AO: Aortic root diameter is normal. LETY: Small circumferential pericardial effusion. AV: No structural AV abnormalities noted. MV: No structural MV abnormalities noted. Mild mitral regurgitation. PV: No structural PV abnormalities noted. A trace of pulmonic regurgitation. TV: No structural TV abnormalities noted. Mild tricuspid regurgitation Herrera: Normal diastolic function. MEASUREMENTS: 2D Parasternal [place] Ds3.6 cmLVPWd1.2 cm LVOT 2 cmAo An2.4 cm LVIDd3.9 cmIndex2.6 cm/m Ao Rtd 2.9 cm Index2 cm/m LVIDs2.2 cmLV Tnkg984.4 g(87-129) LV%fs 43.9 % LVM Nfjrl048.6 g/m2 IVSd 1.1 cmRWT0.6 LA Sng Plane LA Area 19.6 cm2(8.8-23.4) LA Vol58.6 ml Index39.4 ml/m LA LngAx 5.3 cm Aorta Ao Asc 2.8 cm (2.1-3.4) Signed 05/27/2018 04:43 PM Raj Sandoval M.D. Procedure Note Interface, Radiology Results In - 05/27/2018 4:43 PM [facility] Echocardiography Report [address] [address] [facility].Name: MARLON BUCIO.ID: [id number] .Date: 05/27/2018 Refer.MD: LYN MOSER MD Exam Time: 2:02:00 PM Study Type:Routine Echo Height: 65in Weight: 102lb BSA: 1.49 m2 Age: 11 1955,62Y Sex: FEMALE BP: 119/56 HR: 98 bpm Sonogrphr: HERMAN Munoz. Stat.:Inpatient Room: [address] Study Status:Final Echo Event ID:[id number] Order ID: [id number] Reason for Study:R/O vegetation Procedures:2D Echo, Colorflow Doppler, Strain Race: B SUMMARY: LV size is normal. LV EF is normal. LV GLS is -23.3%. Small circumferential pericardial effusion. No vegetation is seen. FINDINGS: LV: LV size is normal. LV EF is normal. LV GLS is -23.3%. Overall wall motion is normal. Estimated EF is 55-59%. RV: RV size is normal. RV systolic function is normal. LA: LA volume is moderately enlarged. RA: RA size is normal. AO: Aortic root diameter is normal. LETY: Small circumferential pericardial effusion. AV: No structural AV abnormalities noted. MV: No structural MV abnormalities noted. Mild mitral regurgitation. PV: No structural PV abnormalities noted. A trace of pulmonic regurgitation. TV: No structural TV abnormalities noted. Mild tricuspid regurgitation Herrera: Normal diastolic function. MEASUREMENTS: 2D Parasternal Long [place] LA Ds 3.6 cm LVPWd 1.2 cm LVOT 2 cm Ao An 2.4 cm LVIDd 3.9 cm Index 2.6 cm/m Ao Rtd 2.9 cm Index 2 cm/m LVIDs 2.2 cm LV Mass 151.4 g (87-129) LV%fs 43.9 % LVM Index 101.6 g/m2 IVSd 1.1 cm RWT 0.6 LA Sng Plane LA Area 19.6 cm2 (8.8-23.4) LA Vol 58.6 ml Index 39.4 ml/m LA LngAx 5.3 cm Aorta Ao Asc 2.8 cm (2.1-3.4) Signed 05/27/2018 04:43 PM Raj Sandoval M.D. Performing Organization Address City/[facility]/Zipcode Phone Number [facility] [address] [place] [address] * Transfuse RBC (05/26/2018 4:07 PM NUCLEAR EQUIPMENT SALES ENGINEER) Only the most recent of 2 results within the time period is included. * Respiratory pathogen panel (05/26/2018 10:48 AM NUCLEAR EQUIPMENT SALES ENGINEER) Respiratory pathogen Negative for all pathogens [facility] DEPARTMENT OF panel tested: PATHOLOGY AND Negative for Adenovirus GENOMIC MEDICINE Negative for Coronavirus HKU1 Negative for Coronavirus NL63 Negative for Coronavirus 229E Negative for Coronavirus OC43 Negative for Human Metapneumovirus Negative for Rhinovirus/Enterovirus Negative for Influenza A Negative for Influenza A/H1 Negative for Influenza A/H3 Negative for Influenza A/H1-2009 Negative for Influenza B Negative for Parainfluenza Virus 1 Negative for Parainfluenza Virus 2 Negative for Parainfluenza Virus 3 Negative for Parainfluenza Virus 4 Negative for Respiratory Syncytial Virus Negative for Bordetella pertussis Negative for Chlamydophila pneumoniae Negative for Mycoplasma pneumoniae This real-time PCR assay detects the presence of nucleic acids (RNA or DNA) for the respiratory pathogens listed. A result of "Not-detected" does not exclude the possibility of the presence of one or more pathogens at concentrations less than the detectable limits of the assay. Comment: Specimen Information Specimen Source: Nares Specimen Site: Left Specimen Nares - Left Performing Organization Address City/State/[place] [address] PATHOLOGY AND GENOMIC MEDICINE * XR Chest 1 Vw Portable (05/26/2018 7:54 AM NUCLEAR EQUIPMENT SALES ENGINEER) Narrative Performed At EXAMINATION: XR CHEST 1 VW PORTABLE RADIANT INDICATION: fever COMPARISON: 04/21/2018 IMPRESSION: Right N approach central venous catheter tip overlies the mid SVC. Increased density of the right lung relative to the left secondary to asymmetric overlying soft tissue. No discrete airspace disease. No pleural effusion or pneumothorax. Cardiomediastinal silhouette within normal limits for portable technique. Stimulator lead overlies the upper central abdomen. [id number] Procedure Note Interface, Radiology Results Incoming - 05/26/2018 8:01 AM NUCLEAR EQUIPMENT SALES ENGINEER EXAMINATION: XR CHEST 1 VW PORTABLE INDICATION: fever COMPARISON: 04/21/2018 IMPRESSION: Right N approach central venous catheter tip overlies the mid SVC. Increased density of the right lung relative to the left secondary to asymmetric overlying soft tissue. No discrete airspace disease. No pleural effusion or pneumothorax. Cardiomediastinal silhouette within normal limits for portable technique. Stimulator lead overlies the upper central abdomen. [facility]-[id number] Performing Organization Address City/[facility] Centercode Phone Number [address] [address] * POC glucose (05/25/2018 10:12 PM NUCLEAR EQUIPMENT SALES ENGINEER) Only the most recent of 24 results within the time period is included. POC glucose 134 (H) 65 - 99 mg/dL [facility] DEPARTMENT OF Comment: PATHOLOGY AND COUNT INCLUDES [facility] Notified RN GENOMIC MEDICINE Meter ID: [id number] Gas Fitter Apprentice: Oscar Xiao Performing Organization Address City/[facility]/Zipcode Phone Number [address] [address] PATHOLOGY AND GENOMIC MEDICINE * Urinalysis screen and microscopy, with reflex to culture (05/25/2018 5:42 PM NUCLEAR EQUIPMENT SALES ENGINEER) Only the most recent of 2 results within the time period is included. Specimen site Clean catch [facility] DEPARTMENT OF PATHOLOGY AND GENOMIC MEDICINE Color, UA Straw [facility] DEPARTMENT OF PATHOLOGY AND GENOMIC MEDICINE Appearance, UA Clear [facility] DEPARTMENT OF PATHOLOGY AND GENOMIC MEDICINE Specific gravity, UA 1.008 1.001 - 1.035 [facility] DEPARTMENT OF PATHOLOGY AND GENOMIC MEDICINE pH, UA 5.0 5.0 - 8.5 [facility] DEPARTMENT OF PATHOLOGY AND GENOMIC MEDICINE Protein, UA Negative Negative [facility] DEPARTMENT OF PATHOLOGY AND GENOMIC MEDICINE Glucose, UA Negative Negative [facility] DEPARTMENT OF PATHOLOGY AND GENOMIC MEDICINE Ketones, UA Negative Negative [facility] DEPARTMENT OF PATHOLOGY AND GENOMIC MEDICINE Bilirubin, UA Negative Negative [facility] DEPARTMENT OF PATHOLOGY AND GENOMIC MEDICINE Blood, UA Negative Negative [facility] DEPARTMENT OF PATHOLOGY AND GENOMIC MEDICINE Nitrite, UA Negative Negative [facility] DEPARTMENT OF PATHOLOGY AND GENOMIC MEDICINE Urobilinogen, UA <2.0 <2.0 [facility] DEPARTMENT OF PATHOLOGY AND GENOMIC MEDICINE Leukocyte esterase, UA Negative Negative [facility] DEPARTMENT OF PATHOLOGY AND GENOMIC MEDICINE Epithelial cells, UA <1 /HPF [facility] DEPARTMENT OF PATHOLOGY AND GENOMIC MEDICINE WBC, UA <1 0 - 4 /HPF [facility] DEPARTMENT OF PATHOLOGY AND GENOMIC MEDICINE RBC, UA None seen 0 - 5 /HPF [facility] DEPARTMENT OF PATHOLOGY AND GENOMIC MEDICINE Bacteria, UA None seen None seen [facility] DEPARTMENT OF PATHOLOGY AND GENOMIC MEDICINE Yeast, UA None seen [facility] DEPARTMENT OF PATHOLOGY AND GENOMIC MEDICINE Yeast with pseudohyphae, None seen [facility] DEPARTMENT OF UA PATHOLOGY AND GENOMIC MEDICINE Specimen Urine Performing Organization Address City/[facility]ode Phone Number [facility] [address] PATHOLOGY AND [facility] MEDICINE * Urine culture (05/25/2018 5:40 PM NUCLEAR EQUIPMENT SALES ENGINEER) Only the most recent of 2 results within the time period is included. Urine culture SEE COMMENTComment: [facility] DEPARTMENT OF Bacteriuria screen negative. PATHOLOGY AND GENOMIC MEDICINE Performing Organization Address City/[facility] [place] [address] PATHOLOGY AND [facility] * Prepare RBC, 1 Units (05/25/2018 4:00 PM NUCLEAR EQUIPMENT SALES ENGINEER) Only the most recent of 2 results within the time period is included. Product name Red Blood Cells -1, Leukored [facility] Unit number [id number] [facility] Product code [id number] [facility] Dispense status Transfused [facility] Blood expiration date [id number] [facility] Blood type code 6200 [facility] Blood type A POSITIVE [facility] Performing Organization Address [facility] Centercode Phone Number [facility] [address] PATHOLOGY AND GENOMIC MEDICINE [address] * Type and screen (05/25/2018 4:00 PM NUCLEAR EQUIPMENT SALES ENGINEER) Only the most recent of 2 results within the time period is included. ABO grouping A [facility] DEPARTMENT OF PATHOLOGY AND GENOMIC MEDICINE Rh type POS [facility] DEPARTMENT OF PATHOLOGY AND GENOMIC MEDICINE Antibody screen (gel) NEG [facility] DEPARTMENT OF PATHOLOGY AND GENOMIC MEDICINE Specimen Blood Performing Organization Address City/State/Zipcode Phone Number [facility] DEPARTMENT OF [address] [place] [address] PATHOLOGY AND GENOMIC MEDICINE * Miscellaneous Lab Result (05/23/2018) Only the most recent of 2 results within the time period is included. Specimen Blood Narrative Performed At * Pv duplex venous lower extremity (05/12/2018 2:03 PM CDT) Narrative Performed At [facility] Vascular Ultrasound Laboratory Lower Extremity Venous Report [address] [place] [address] Pat.Name:MARLON BUCIO.ID:[id number] .Date: 05/12/2018Refer.MD:LISA ROBERTS MD Exam Time: 1:30:00 PMStudy Type:LE Venous Height:65inDOBAge:1954,62Y Sex: FEMALESonogrphr: Jl Alvarez RVT Pat. Stat.:OutpatientTapeVol: TEJAL, CPT - 4: 07117 Echo Event ID:[id number] Order ID:[id number] Reason for Study:Bilateral leg edema x 3 weeks Procedures:Colorflow, Grayscale/2D, Pulsed wave Doppler Race:B SUMMARY: DUPLEX SCAN OBSERVATIONS Deep VeinsSuperficial Veins RightLeft RightLeft GSV (prox) NormalNormal CFV Normal Normal (above knee) Femoral Normal Normal GSV (dist) Normal Not Visualized Profunda Normal Normal (below knee) Popliteal Normal Normal PT (prox) Not Visualized NormalSSV Not Visualized Normal PT (dist) Not Visualized Normal Peroneal Normal Normal RIGHT: There is normal compressibility with no evidence of echogenic material noted within the lumen of the visualized veins. Colorflow and Doppler signals are normal. Greater saphenous vein not visualized beyond the mid segment. LEFT: There is normal compressibility with no evidence of echogenic material noted within the lumen of the visualized veins. Colorflow and Doppler signals are normal. PRELIMINARY FINDINGS 1. Normal venous duplex exam of the visualized veins. PHYSICIAN INTERPRETATION Venous examination of the both lower extremities demonstrated no evidence of venous thrombosis in the visualized veins.Normal compressibility and augmentation of all veins visualized. Signed 05/12/2018 03:33 PM Savage Chaudhary MD, RPVI Procedure Note Interface, Radiology Results In - 05/12/2018 3:33 PM CDT Vascular Ultrasound Laboratory Lower Extremity Venous Report [address] [place] [address] Pat.Name: MARLON BUCIO Pat.ID: [id number] St.Date: 05/12/2018 Refer.MD: LISA ROBERTS MD Exam Time: 1:30:00 PM Study Type:LE Venous Height: 65in Age: 11 1955,62Y Sex: FEMALE Sonogrphr: Jl Alvarez RVT Pat. Stat.:Outpatient Tape Vol: VB, CPT - 4: 55751 Echo Event ID:[id number] Order ID: [id number] Reason for Study:Bilateral leg edema x 3 weeks Procedures:Colorflow, Grayscale/2D, Pulsed wave Doppler Race: B SUMMARY: DUPLEX SCAN OBSERVATIONS Deep Veins Superficial Veins Right Left Right Left GSV (prox) Normal Normal CFV Normal Normal (above knee) Femoral Normal Normal GSV (dist) Normal Not Visualized Profunda Normal Normal (below knee) Popliteal Normal Normal PT (prox) Not Visualized Normal SSV Not Visualized Normal PT (dist) Not Visualized Normal Peroneal Normal Normal RIGHT: There is normal compressibility with no evidence of echogenic material noted within the lumen of the visualized veins. Colorflow and Doppler signals are normal. Greater saphenous vein not visualized beyond the mid segment. LEFT: There is normal compressibility with no evidence of echogenic material noted within the lumen of the visualized veins. Colorflow and Doppler signals are normal. PRELIMINARY FINDINGS 1. Normal venous duplex exam of the visualized veins. PHYSICIAN INTERPRETATION Venous examination of the both lower extremities demonstrated no evidence of venous thrombosis in the visualized veins. Normal compressibility and augmentation of all veins visualized. Signed 05/12/2018 03:33 PM Savage Chaudhary MD, RPVI Performing Organization Address [facility]ode Phone Number [facility] [address] [place] [address] * C-reactive protein (04/25/2018 4:00 AM CDT) Only the most recent of 2 results within the time period is included. CRP <0.30 0.00 - 0.50 mg/dL [facility] DEPARTMENT OF PATHOLOGY AND GENOMIC MEDICINE Specimen Plasma specimen Performing Organization Address [facility] [place] [address] PATHOLOGY AND [employer] MEDICINE * Hemoglobin & hematocrit (04/23/2018 11:55 AM CDT) HGB 7.6 (L) 12.0 - 16.0 g/dL [facility] DEPARTMENT OF PATHOLOGY AND GENOMIC MEDICINE HCT 22.5 (L) 37.0 - 47.0 % [facility] DEPARTMENT OF PATHOLOGY AND GENOMIC MEDICINE Specimen Blood Performing Organization Address [facility] [place] [address] PATHOLOGY AND GENOMIC MEDICINE * Occult blood, stool (04/23/2018 9:30 AM CDT) Occult blood, stool Positive for Occult blood (A) [facility] DEPARTMENT OF Comment: PATHOLOGY AND Specimen Information GENOMIC MEDICINE Specimen Source: Stool Specimen Site: Nonpreserved Specimen Stool - Nonpreserved Performing Organization Address [facility] [place] [address] PATHOLOGY AND GENOMIC MEDICINE * Sedimentation rate (04/22/2018 4:40 AM CDT) Sedimentation rate 22 (H) 0 - 20 mm/hr [facility] DEPARTMENT OF PATHOLOGY AND GENOMIC MEDICINE Specimen Blood Performing Organization Address [facility]ode Phone Number [address] [place] [address] PATHOLOGY AND GENOMIC MEDICINE * Homocystine, plasma (04/22/2018 4:00 AM CDT) Homocysteine 10.9 0.0 - 15.0 umol/L [facility] DEPARTMENT OF Comment: PATHOLOGY AND The risk for coronary vascular GENOMIC MEDICINE disease increases progressively with homocysteine concentration.A 3.4 times greater risk is associated with a homocysteine concentration of greater than 15.8 umol/L as compared to a concentration below 14.1 umol/L. Specimen Plasma specimen Performing Organization Address [facility] Phone Number [facility] DEPARTMENT OF [address] [place] [address] PATHOLOGY AND GENOMIC MEDICINE * Vitamin B1 level, whole blood (04/22/2018 4:00 AM CDT) Vitamin B1 90 70 - 180 nmol/L [facility] Comment: INTERPRETIVE INFORMATION: Vitamin B1, Whole Blood This assay measures the concentration of thiamine diphosphate (TDP), the primary active form of vitamin B1. Approximately 90 percent of vitamin B1 present in whole blood is TDP. Thiamine and thiamine monophosphate, which comprise the remaining 10 percent, are not measured. Test developed and characteristics determined by [facility]. See Compliance Statement B: IP Street.Ph[employer]/CS Performed by [facility], [address] [place] [address] [email or web address], Bob Love MD - Lab. Director Specimen Plasma specimen Performing Organization Address [facility] Cent[facility]ode Phone Number [facility] [address] [place] [address] * Vitamin D 25 hydroxy level (04/22/2018 4:00 AM CDT) Vitamin D, 25-hydroxy 42.5 30.0 - 150.0 ng/mL [facility] DEPARTMENT OF Comment: PATHOLOGY AND This assay reports the sum of GENOMIC MEDICINE 25-hydroxy vitamin D3 and 25-hydroxy vitamin D2. Reference range: 0-17 years: Deficiency: less than 20ng/mL Optimum level: greater than or equal to 20 ng/mL. 18 years and older: Deficiency: less than 20ng/mL Insufficiency: 20-29 ng/mL Optimum Level: 30-80 ng/mL The assay reportable range is 3.4155.9 ng/mL. Levels higher than 150 ng/mL may be associated with toxicity. If toxicity is clinically suspected and the reported result is >155.9 ng/mL,contact lab for alternative methods to obtain a definitivelevel. If separate quantitation of 25-hydroxy vitamin D3 and 25-hydroxy vitamin D2 is needed, please contact lab for alternative methods. Specimen Blood Performing Organization Address City/[facility]/[place] [address] PATHOLOGY AND [facility] * Triglycerides (04/22/2018 4:00 AM CDT) Triglycerides 59 <150 mg/dL [facility] DEPARTMENT OF PATHOLOGY AND [facility] [facility] Specimen Plasma specimen Performing Organization Address [facility] [place] [address] PATHOLOGY AND [facility] * Thyroid stimulating hormone (04/22/2018 4:00 AM CDT) TSH 6.33 (H) 0.27 - 4.20 uIU/mL [facility] DEPARTMENT OF PATHOLOGY [facility] MEDICINE Specimen Plasma specimen Performing Organization Address [facility] [place] [address] PATHOLOGY AND [facility] * Prealbumin level (04/22/2018 4:00 AM CDT) Only the most recent of 2 results within the time period is included. Prealbumin 6 (L) 16 - 32 mg/dL [facility] DEPARTMENT OF PATHOLOGY AND GENOMIC MEDICINE Specimen Serum Performing Organization Address [facility] [place] [address] PATHOLOGY [facility] * Ferritin level (04/22/2018 4:00 AM CDT) Ferritin level 908 (H) 13 - 150 ng/mL [facility] DEPARTMENT OF PATHOLOGY AND [employer] [facility]ICINE Specimen Plasma specimen Performing Organization Address [facility] [place] [address] PATHOLOGY AND [facility] * Vitamin B12 level (04/22/2018 4:00 AM CDT) Vitamin B12 1,293 (H) 211 - 946 pg/mL [facility] DEPARTMENT OF Comment: PATHOLOGY AND Significant overlap exists GENOMIC MEDICINE between normal and deficiency states. However, most patients with deficiencies will have Serum B12 <200 pg/mL. Specimen Serum Performing Organization Address City/State/Zipcode Phone Number [facility] DEPARTMENT OF [address] [place] [address] PATHOLOGY AND GENOMIC MEDICINE * CT Abdomen Pelvis W Contrast (04/21/2018 6:52 PM CDT) Only the most recent of 2 results within the time period is included. Narrative Performed At EXAMINATION:CT ABDOMEN PELVIS W CONTRAST [facility] CLINICAL HISTORY:Abd painunspecified, evaluate previous midline wound infection. s p diagnostic laparoscopy converted to exploratory laparotomy with small bowel resection and enteroenterostomy COMPARISON:January 20, 2018 TECHNIQUE: Multiple axial CT images of the Abdomen and pelvis were obtained Without IV contrast limiting evaluation Oral contrast was administered. . Sagittal and coronal reconstructions were done. Radiation dose reduction technique used for this study. CT imaging was performed with iterative reconstruction technique and/or automated exposure control to reduce radiation dose. FINDINGS: HEPATOBILIARY:Stable central pneumobilia. No obvious fluid collections. GALLBLADDER: Absent. SPLEEN:No splenomegaly. PANCREAS:Unremarkable within the limitations of a noncontrast exam. ADRENALS:No adrenal nodules. KIDNEYS:No stones or hydronephrosis. PERITONEUM/RETROPERITONEUM:No free air or fluid. No lymphadenopathy. ABDOMINAL AORTA/IVC: No signs of aneurysm. GI TRACT:Visualized portions of the bowel demonstrate no distention or wall thickening. The appendix is normal. There are signs of diverticulitis. No signs of contrast leak. PELVIC ORGANS/BLADDER:Urinary bladder is distended with fluid. Uterus and ovaries are absent. BONES AND SOFT TISSUES:No fluid collections in the abdominal wall. Visualized bones are without acute abnormalities. VISUALIZED LOWER CHEST: No acute abnormality. IMPRESSION: No significant acute abnormality. No fluid collections. [id number] Procedure Note Interface, Radiology Results Incoming - 04/21/2018 7:26 PM CDT EXAMINATION: CT ABDOMEN PELVIS W CONTRAST CLINICAL HISTORY: Abd pain unspecified, evaluate previous midline wound infection. s p diagnostic laparoscopy converted to exploratory laparotomy with small bowel resection and enteroenterostomy COMPARISON: January 20, 2018 TECHNIQUE: Multiple axial CT images of the Abdomen and pelvis were obtained Without IV contrast limiting evaluation Oral contrast was administered. . Sagittal and coronal reconstructions were done. Radiation dose reduction technique used for this study. CT imaging was performed with iterative reconstruction technique and/or automated exposure control to reduce radiation dose. FINDINGS: HEPATOBILIARY: Stable central pneumobilia. No obvious fluid collections. GALLBLADDER: Absent. SPLEEN: No splenomegaly. PANCREAS: Unremarkable within the limitations of a noncontrast exam. ADRENALS: No adrenal nodules. KIDNEYS: No stones or hydronephrosis. PERITONEUM/RETROPERITONEUM: No free air or fluid. No lymphadenopathy. ABDOMINAL AORTA/IVC: No signs of aneurysm. GI TRACT: Visualized portions of the bowel demonstrate no distention or wall thickening. The appendix is normal. There are signs of diverticulitis. No signs of contrast leak. PELVIC ORGANS/BLADDER: Urinary bladder is distended with fluid. Uterus and ovaries are absent. BONES AND SOFT TISSUES: No fluid collections in the abdominal wall. Visualized bones are without acute abnormalities. VISUALIZED LOWER CHEST: No acute abnormality. IMPRESSION: No significant acute abnormality. No fluid collections. [id number] Performing Organization Address City/State/Zipcode Phone Number [facility] [address] [place] [address] * PICC INSERTION (04/21/2018 5:31 PM CDT) Narrative Performed At [facility] 04/21/20185:39 PM PICC insertion Date/Time: 04/21/2018 5:32 PM Performed by: JAROD ENAMORADO Authorized by: ZOHREH LANGFORD Consent: Consent obtained:Verbal Consent given by:Patient Risks discussed: arterial puncture, incorrect placement, nerve damage, bleeding, infection, superficial thrombus and deep vein thrombus Alternatives discussed:Delayed treatment and no treatment [place] protocol: Procedure explained and questions answered to patient or proxy's satisfaction: yes Relevant documents present and verified: yes Test results available and properly labeled: yes Imaging studies available: yes Required blood products, implants, devices, and special equipment available: yes Site/side marked: yes Immediately prior to procedure, a time out was called: yes Patient identity confirmed:Verbally with patient, arm band, provided demographic data and hospital-assigned identification number Pre-procedure details: Hand hygiene: Hand hygiene performed prior to insertion Sterile barrier technique: All elements of maximal sterile technique followed Skin preparation:2% chlorhexidine Skin preparation agent: Skin preparation agent completely dried prior to procedure Anesthesia (see MAR for exact dosages): Anesthesia method:Local infiltration Local anesthetic:Lidocaine 1% w/o epi Route of administration:Subcutaneous PICC Line Placement Details (Will create an LDA): Patient position:Flat Vessel Size (mm):4 Indication:TPN Location:Right brachial Device Type:Non-valved Catheter size:5 Fr PICC Characteristics: Catheter Brand:Angiodynamic PowerPICC External Catheter Length (cm):0 Internal Catheter Length (cm):38 Total Catheter Length (cm):38 Catheter Lot Number:[id number] Catheter Expiration Date:01/15/2020 Procedure Details: Landmarks identified: yes Ultrasound guidance: yes Sterile ultrasound techniques: Sterile gel and sterile probe covers were used Number of attempts:1 Number of PICC kits used during procedure:1 Purpose of procedure:PICC Placement Successful PICC Placement: Yes Patency/Placement:Flushes without difficulty, flushed with 10 mL normal saline, positive blood return, x-ray placement verified and injection cap placed PICC placed utlizing ultrasound-guided Modified Seldinger Technique: Yes Dressing/Securement:Catheter securement device and antimicrobial dressing applied Blood Loss Amount:Less than 20 mL Post-Procedure Details: Post-procedure:Dressing applied Tip placement confirmed by chest x-ray: Yes Patient tolerance of procedure:Tolerated well, no immediate complications * XR Chest 2 Vw (04/21/2018 5:01 PM CDT) Narrative Performed At EXAMINATION:XR CHEST 2 VW [facility] CLINICAL HISTORY:Chest painacutenonspecificlow prob CAD COMPARISON:Chest x-ray 06/20/2017 IMPRESSION: Frontal and lateral views reveal a normal cardiomediastinal silhouette. Lungs are clear. Pleural margins are sharp. The remainder of the examination is unchanged. [facility]-[id number] Procedure Note Hm Interface, Radiology Results Incoming - 04/21/2018 5:07 PM CDT EXAMINATION: XR CHEST 2 VW CLINICAL HISTORY: Chest pain acute nonspecific low prob CAD COMPARISON: Chest x-ray 06/20/2017 IMPRESSION: Frontal and lateral views reveal a normal cardiomediastinal silhouette. Lungs are clear. Pleural margins are sharp. The remainder of the examination is unchanged. [facility]-[id number] Performing Organization Address City/State/Zipcode Phone Number [facility] [address] [place] [address] * ECG 12 lead (04/21/2018 3:43 PM CDT) Only the most recent of 2 results within the time period is included. Ventricular rate 97 [facility] Atrial rate 97 [facility] RI interval 156 [facility] QRSD interval 76 [facility] QT interval 356 [facility] QTC interval 452 [facility] P axis 1 74 [facility] QRS axis 1 47 [facility] M[facility] T wave axis 68 [facility] MUSE EKG impression Normal sinus rhythm-ST [facility] MUSE elevation, consider early repolarization, pericarditis, or injury-Abnormal ECG-In automated comparison with ECG of 20-JAN-2018 09:31,-ST elevation now present in Anterolateral leads-Nonspecific T wave abnormality no longer evident in Lateral leads- Performing Organization Address City/[facility] Phone Number [facility] MUSE [address] [place] [address] * Prothrombin time with INR (04/21/2018 3:22 PM CDT) Prothrombin time 13.6 12.0 - 15.0 sec [facility] DEPARTMENT OF PATHOLOGY AND GENOMIC MEDICINE INR 1.0 [facility] DEPARTMENT OF Comment: PATHOLOGY AND The International Normalized GENOMIC MEDICINE Ratio (INR) is a therapeutic monitoring tool for patients who are stable on oral anticoagulant therapy. An INR of 2.0-3.0 is suggested for deep vein thrombosis/pulmonary embolism. Specimen Blood Performing Organization Address [facility] Phone Number [facility] DEPARTMENT OF [address] [place] [address] PATHOLOGY AND [employer] [facility]ICINE * D-dimer (04/21/2018 3:22 PM CDT) D-dimer 0.70 (H) 0.00 - 0.40 ug/mL FEU [facility] DEPARTMENT OF Comment: PATHOLOGY AND Units are ug/ml Fibrinogen [facility]INE Equivalent Unit. When combined with low clinical probability, D-dimer results of less than 0.5 ug/ml FEU have a good negativepredictive value in excluding PE or DVT. For D-dimer results greater than 0.5ug/ml FEU further testing is indicated if PE or DVT is suspectedclinically. Elevated D-dimer results have been reported in DVT, PE, and DIC cases and may indicate the presence of a clot. D-dimer results may be elevated due to old age, , inflammatory diseases, trauma, post-operative states, sepsis, and malignancies. Specimen Blood Performing Organization Address [facility] Phone Number [facility] DEPARTMENT OF [address] [place] [address] PATHOLOGY AND [employer] MEDICINE * Smear review (04/21/2018 2:25 PM CDT) Only the most recent of 2 results within the time period is included. Platelet slide review [place] adequate [facility] DEPARTMENT OF PATHOLOGY AND GENOMIC MEDICINE Anisocytosis Moderate [facility] DEPARTMENT OF PATHOLOGY AND GENOMIC MEDICINE Polychromasia Moderate [facility] DEPARTMENT OF PATHOLOGY AND GENOMIC MEDICINE Schistocytes Moderate (A) [facility] DEPARTMENT OF PATHOLOGY AND GENOMIC MEDICINE Target cells Moderate (A) [facility] DEPARTMENT OF PATHOLOGY AND GENOMIC MEDICINE [place] cells Moderate (A) [facility] DEPARTMENT OF PATHOLOGY AND GENOMIC MEDICINE Performing Organization Address City/[facility] [place] [address] PATHOLOGY AND GENOMIC MEDICINE * Troponin (04/21/2018 2:25 PM CDT) Troponin <0.30 0.00 - 0.30 ng/mL [facility] DEPARTMENT OF Comment: PATHOLOGY AND 0.30 - 1.49 GENOMIC MEDICINE ng/mlMay indicate increased risk of acute coronary syndrome. >=1.5 ng/ml Consistent with acute myocardial infarction. The diagnostic value of a single normal or non-diagnostic result is questionable.Serial samples at 2-6 hour intervals are required to rule out acute myocardial injury. Specimen Plasma specimen Performing Organization Address City/[facility] [place] [address] PATHOLOGY AND [facility]ICINE * Lipase level (04/21/2018 2:25 PM CDT) Only the most recent of 2 results within the time period is included. Lipase 9 (L) 13 - 60 U/L [facility] DEPARTMENT OF PATHOLOGY AND GENOMIC MEDICINE Specimen Plasma specimen Performing Organization Address City/[facility] [place] [address] PATHOLOGY AND [facility]ICINE * Amylase level (04/21/2018 2:25 PM CDT) Amylase 31 28 - 100 U/L [facility] DEPARTMENT OF PATHOLOGY AND GENOMIC MEDICINE Specimen Plasma specimen Performing Organization Address City/[facility] [place] [address] PATHOLOGY AND [employer] [facility]ICINE * Estimated GFR (01/23/2018 4:00 AM CDT) Only the most recent of 5 results within the time period is included. GFR Non Af Amer >90 mL/min/1.73 m2 [facility] DEPARTMENT OF PATHOLOGY AND GENOMIC MEDICINE GFR Af Amer >90 mL/min/1.73 m2 [facility] DEPARTMENT OF Comment: PATHOLOGY AND Chronic kidney disease: <60 GENOMIC MEDICINE mL/min/1.73m2 Kidney failure: <15 mL/min/1.73m2 The estimated GFR is calculated from the IDMS-traceable Modification of Diet in Renal Disease Equation. The accuracy of the calculation is poor when the creatinine is normal. Calculated values >90 mL/min/1.73m2 are not reported. This equation has not been validated in children (<18 years), women, the elderly (>70 years), or ethnic groups other than Caucasians and Americans. Specimen Plasma specimen Performing Organization Address City/[facility] Phone Number [facility] DEPARTMENT [address] [address] PATHOLOGY AND GENOMIC MEDICINE * Surgical pathology request (01/20/2018 1:02 PM CDT) [facility] DEPARTMENT OF PATHOLOGY AND GENOMIC MEDICINE Surgical pathology report See link below for PDF Lab [facility] DEPARTMENT OF Report PATHOLOGY AND GENOMIC MEDICINE Result status This is Final Report to [facility] DEPARTMENT OF [id number] PATHOLOGY AND GENOMIC MEDICINE Performing Organization Address [facility] Phone Number [facility] DEPARTMENT [address] [address] PATHOLOGY AND GENOMIC MEDICINE * Gram stain (01/20/2018 5:00 AM CDT) Gram stain result Many Gram negative rods [facility] DEPARTMENT OF Rare WBC's PATHOLOGY AND Comment: GENOMIC MEDICINE Specimen Information Specimen Source: Urine Specimen Site: Clean catch Specimen Urine Performing Organization Address City/[facility] [place] [address] PATHOLOGY AND GENOMIC MEDICINE * Lactic acid level, SEPSIS - Now and repeat 2x every 3 hours (01/20/2018 2:50 AM CDT) Lactic acid 1.0 0.5 - 2.2 mmol/L [facility] DEPARTMENT OF PATHOLOGY AND GENOMIC MEDICINE Specimen Plasma specimen Performing Organization Address [facility] Phone Number [facility] DEPARTMENT [address] [address] PATHOLOGY AND GENOMIC MEDICINE after 09/12/2017 Insurance Payer Benefit Subscriber ID Type Phone Address Plan / Group [facility] AARP x[place] [facility] [facility] Advance Directives Patient has advance care planning documents, and code status on file. For more i nformation, please contact: Marco Mcguire [address] [place] [address] Date Inactivated Comments Code Status Date Activated 04/26/2018 4:29 PM Full Code 04/21/2018 1:07 PM Code Status decision reached by: Patient
--- OUTSIDE RECORDS SUMMARY | 2018-09-13 10:22 | XMS REPORT ---
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 Allergies, Adverse Reactions, Alerts This patient has no known allergies or adverse reactions. Medications This patient has no known medications. Results Test Description Test Time Test Comments Text Results Atomic Results Result Comments CT ABDOMEN/PELVIS W 2018-07-21 14:42:00 [place] [id number] [place] [address] Patient Name: MARLON DARNELL MR #: [id number] : 1955 Age/Sex: 63/F Req #: [id number] Adm Physician: Ordered by: FABIANA BROWNE MD Report #: [id number] Location: CT Room/Bed: Procedure: [id number] CT/CT ABDOMEN/PELVIS W Exam Date: 07/21/18 Exam Time: 1346 REPORT STATUS: Signed EXAM: CT Abdomen and Pelvis WITH contrast INDICAT ION: [id number] UNSPEC'D INTESTINAL OBSTRUCTION COMPARISON: None. TECHNIQUE: Abdomen and pelvis were scanned utilizing a multidetector helical scanner from the lung base to the pubic symphysis after administration of IV contrast. Coronal and sagittal reformations were obtained. Dose modulation, iterative reconstruction, and/or weight based adjustment of the mA/kV was utilized to reduce the radiation dose to as low as reasonably achievable. Routine protocol was performed. Scan was performed when during portal venous phase. IV CONTRAST: 100 mL of Isovue-370 ORAL CONTRAST: Gastroview COMPLICATIONS: None [facility] DOSE: Total DLP: 379.9 mGy*cm Estimated effective dose: (DLP x 0.015 x size factor) mSv CTDIvol has been reviewed. It is below the limits set by the Radiation Protocol Committee (RPC). FINDINGS: LINES and TUBES: Left lower quadrant spine stimulator device with tip terminating in posterior spinal canal at the level of T11-T12. LOWER THORAX: Unremarkable HEPATOBILIARY: No focal hepatic lesions. Predominantly central pneumobilia. There is mild biliary dilatation. Distended common bile duct measuring up to 1.1 cm with air-fluid level. GALLBLADDER: Surgically absent. Metallic densities in the gallbladder fossa. SPLEEN: No splenomegaly. PANCREAS: No focal masses or ductal dilatation. ADRENALS: No adrenal nodules KIDNEYS/URETERS: Kidneys enhance symmetrically. No hydronephrosis. No renal mass. Tiny left inferior pole hypodensity is too small to characterize. No stones. GI TRACT: Evaluation of bowel loops are limited due to paucity of intra-abdominal fat. Mild colonic wall thickening. Evidence of gastric bypass surgery. Mild air and fluid distention of the bypassed portion of stomach and duodenum. Overall, the bowel gas pattern is nonobstructive. Oral contrast reaches proximal colon. PELVIC ORGANS/BLADDER: Hysterectomy. Bladder is unremarkable. Pelvic phleboliths. LYMPH NODES: No lymphadenopathy. VESSELS: Unremarkable. PERITONEUM / RETROPERITONEUM: No free air. Trace pelvic ascites. BONES: Lumbar spine scoliosis with degenerative changes. Grade 1 retrolisthesis of L5 in relation to L4. SOFT TISSUES: Metallic fragments in gallbladder fossa and anterior lower left abdomen (series 2, image 43). IMPRESSION: 1. Mild air and fluid distention of the bypassed portion of stomach and duodenum, likely due to stenosis at distal Y-anastomosis. The dilatation of common bile duct with air and fluid, could also be related to the same reason as well as some reservoir effect. 2. Colonic wall thickening, could represent colitis in the appropriate clinical setting. Signed by: Dr. Aaron Mg MD on 07/21/2018 3:20 PM Dictated By: AARON MG MD 1520 Transcribed By: YURI on 07/21/18 1520 COPY TO: FABIANA BROWNE MD
[2018-09-13 13:20] VITALS: BP 158/87
--- NOTE | 2018-09-13 19:39 | Operative Report ---
DATE OF PROCEDURE: 09/13/2018 SURGEON: Kalpesh Freeman MD PROCEDURES: EGD and a colonoscopy with polypectomy. INDICATIONS FOR EGD: Upper abdominal pain, nausea, and vomiting. The patient is status post José Miguel-en-Y for morbid obesity. INDICATIONS FOR COLONOSCOPY: Surveillance colonoscopy, personal history of colon polyps. MEDICATION: The patient was done under MAC. Please see anesthesiologist's note. DESCRIPTION OF PROCEDURE: With the patient in left lateral decubitus position, a flexible fiberoptic Olympus gastroscope was introduced into the esophagus under direct visualization without any difficulty. The esophagus grossly appeared to be within normal limits. There was a small sliding hiatal hernia that was traversed with ease and the patient appears to be status post José Miguel-en-Y. Anastomosis was intact. There were no marginal ulcers. The enteric loop was patent. The scope was subsequently withdrawn. The patient tolerated the procedure well. IMPRESSION: 1. Normal esophagus. 2. Small sliding hiatal hernia. 3. Status post José Miguel-en-Y anastomosis intact. Enteric loop patent. No evidence of marginal ulcers. PLAN: Initiate Protonix 40 mg one p.o. q.a.m. before meals. The patient was then turned around. After adequate lubrication of the anal canal, a flexible fiberoptic Olympus colonoscope was inserted into the rectum and advanced all the way to the cecum. Mucosa overlying the cecum appeared to be within normal limits. Two minute polyps were hot biopsied from the ascending colon. One polypectomy site was hemoclipped. The rest of the ascending and transverse appeared to be within normal limits. Some diverticular disease was noted in the distal descending and the sigmoid colon. The mid and distal sigmoid colon were sharply angulated and were not optimally visualized. The rectum appeared to be within normal limits. The scope was then retroflexed into the distal rectum and the area around the dentate line appeared to be within normal limits. The scope was then straightened out and it was subsequently withdrawn. The patient tolerated the procedure well. IMPRESSION: 1. Ascending colon polyps x2 hot biopsied, one polypectomy site was hemoclipped. 2. Diverticulosis. PLAN: Followup histology. Initiate high-fiber, low-fat diet. Initiate high-fiber supplement. The patient might benefit from a followup colonoscopy in 5 years. MD ROBBIE Nagel/[facility]MAT[facility] /[id number] cc: Jeremias Lombardi MD
== END | disposition home or self-care (01) ==
LOC: OR 10:18
PROVIDERS: ATTEND Internal Medicine Gastroenterology
DX: K56.609 Unspecified intestinal obstruction, unspecified as to partial versus complete obstruction (principal); K63.5 Polyp of colon; K85.90 Acute pancreatitis without necrosis or infection, unspecified; K44.9 Diaphragmatic hernia without obstruction or gangrene; Z98.84 Bariatric surgery status; K57.30 Diverticulosis of large intestine without perforation or abscess without bleeding; K21.9 Gastro-esophageal reflux disease without esophagitis; K58.9 Irritable bowel syndrome, unspecified; D64.9 Anemia, unspecified; M54.9 Dorsalgia, unspecified; Z88.0 Allergy status to penicillin
CPT/HCPCS: 43235; 45384; 88305; 93005; J1980; J2250; J2704; 43239; 45378

== ENCOUNTER → 2020-08-28 | Outpatient (CLI) | payer MEDICARE ==
[~2020-08-28] MED LIST changes: +AMLODIPINE BESYL5 MG PO; +COQ-1030 MG PO; -FENTANYL CITRATE/PF 100MCG/2 ML INJ ONE; +HYDROCODON-ACE1 EAC8 PO; -HYOSCYAMINE SULFATE 0.5 MG/ML INJ ONE; -MIDAZOLAM HCL 2 MG/2 ML VIAL ONE; -PROPOFOL IV EMULSION 10 MG/ML 50 ML VIAL ONE
[2020-08-28 09:19] LABS: BASOPHILS % 0.8 % (0.0-1.0); EOSINOPHILS # (AUTO) 0.1 (0.0-0.4); EOSINOPHILS % 1.8 % (0.0-6.0); HEMATOCRIT 34.4 % (34.2-44.1); HEMOGLOBIN 10.5 g/dL (12.0-16.0); LYMPHOCYTES # (AUTO) 1.9 (1.0-3.2); LYMPHOCYTES % 37.5 % (18.0-39.1); MEAN CORPUSCULAR HEMOGLOBIN 21.7 pg (28-32); MEAN CORPUSCULAR HGB CONC 30.5 g/dL (31-35); MEAN CORPUSCULAR VOLUME 71.2 fL (81-99); MONOCYTES # (AUTO) 0.5 (0.2-0.8); MONOCYTES % 10.5 % (4.4-11.3); NEUTROPHILS # (AUTO) 2.4 (2.1-6.9); NEUTROPHILS % 49.2 % (38.7-80.0); PLATELET COUNT 303 x10e3/uL (140-360); RED BLOOD COUNT 4.83 x10e6/uL (3.6-5.1); RED CELL DISTRIBUTION WIDTH 15.9 % (11.7-14.4)
== END ==
LOC: DX 21:38 → EDSTATUS 09-01 09:00
PROVIDERS: ATTEND Internal Medicine Gastroenterology
DX: Z01.812 Encounter for preprocedural laboratory examination (principal); Z20.822 Contact with and (suspected) exposure to COVID-19; Z01.818 Encounter for other preprocedural examination; R11.0 Nausea; R10.10 Upper abdominal pain, unspecified
CPT/HCPCS: 36415; 85025; 93005; U0002

== ENCOUNTER → 2020-10-01 | Day surgery (SDC) | payer MEDICARE ==
[2020-09-29 10:47] LABS: BASOPHILS % 0.4 % (0.0-1.0); EOSINOPHILS # (AUTO) 0.1 (0.0-0.4); EOSINOPHILS % 1.4 % (0.0-6.0); HEMATOCRIT 35.2 % (34.2-44.1); HEMOGLOBIN 10.7 g/dL (12.0-16.0); LYMPHOCYTES # (AUTO) 2.2 (1.0-3.2); LYMPHOCYTES % 39.9 % (18.0-39.1); MEAN CORPUSCULAR HEMOGLOBIN 21.8 pg (28-32); MEAN CORPUSCULAR HGB CONC 30.4 g/dL (31-35); MEAN CORPUSCULAR VOLUME 71.8 fL (81-99); MONOCYTES # (AUTO) 0.5 (0.2-0.8); MONOCYTES % 8.8 % (4.4-11.3); NEUTROPHILS # (AUTO) 2.8 (2.1-6.9); NEUTROPHILS % 49.3 % (38.7-80.0); PLATELET COUNT 301 x10e3/uL (140-360); RED CELL DISTRIBUTION WIDTH 15.8 % (11.7-14.4)
[~2020-10-01] MED LIST changes: +FENTANYL CITRATE/PF 100MCG/2 ML INJ ONE; +LIDOCAINE HCL 2% LOCAL INJ 5 ML SDV VIAL INJ ONE; +MIDAZOLAM HCL 2 MG/2 ML VIAL ONE; +PROPOFOL IV EMULSION 10 MG/ML 20 ML VIAL ONE
[2020-10-01 15:35] VITALS: BP 135/83
== END | disposition home or self-care (01) ==
LOC: OR 11:39
PROVIDERS: ATTEND Internal Medicine Gastroenterology
DX: R10.10 Upper abdominal pain, unspecified (principal); Z88.0 Allergy status to penicillin; Z01.812 Encounter for preprocedural laboratory examination; Z20.822 Contact with and (suspected) exposure to COVID-19; Z98.84 Bariatric surgery status; K21.9 Gastro-esophageal reflux disease without esophagitis; K86.1 Other chronic pancreatitis; F32.9 Major depressive disorder, single episode, unspecified; I10 Essential (primary) hypertension; M54.9 Dorsalgia, unspecified
CPT/HCPCS: 36415; 43235; 85025; J2001; J2250; J2704; J3010; U0002

== ENCOUNTER → 2020-11-11 | Outpatient (CLI) | payer MEDICARE ==
[~2020-11-11] MED LIST changes: -FENTANYL CITRATE/PF 100MCG/2 ML INJ ONE; +HEPARIN SOD (PORCINE) 1000 UNIT/ML SDV ONE; -LIDOCAINE HCL 2% LOCAL INJ 5 ML SDV VIAL INJ ONE; -MIDAZOLAM HCL 2 MG/2 ML VIAL ONE; -PROPOFOL IV EMULSION 10 MG/ML 20 ML VIAL ONE
== END ==
LOC: NM 11:37
PROVIDERS: ATTEND Internal Medicine Gastroenterology
DX: R10.84 Generalized abdominal pain (principal); D62 Acute posthemorrhagic anemia
CPT/HCPCS: 78278; A9512 ×2; J1644

== ENCOUNTER → 2020-11-21 | Outpatient (CLI) | payer MEDICARE ==
[~2020-11-21] MED LIST changes: +DIATRIZOATE MEGL/DIATRIZOA SOD 30 ML BTL PO ONE; -HEPARIN SOD (PORCINE) 1000 UNIT/ML SDV ONE; +IOPAMIDOL 370 MG/ML 200 ML INFUS..BTL INJ ONE; +SODIUM CHLORIDE 0.9% 50ML 50 ML ONE
[2020-11-21 15:44] LABS: BLOOD UREA NITROGEN 13 mg/dL (7-26); BUN/CREATININE RATIO 19 (6-25); CREATININE, SERUM 0.69 mg/dL (0.57-1.11); EST GLOMERULAR FILTRATION RATE > 60 ML/MIN (60-)
== END ==
LOC: CT 15:09
PROVIDERS: ATTEND Internal Medicine Gastroenterology
DX: R10.33 Periumbilical pain (principal); Z87.19 Personal history of other diseases of the digestive system
CPT/HCPCS: 36415; 74177; 82565; 84520; Q9967